=== PATIENT | female | born 1955 | race Caucasian/White ===

== ENCOUNTER → 2018-01-17 | Outpatient (CLI) | payer OTHER | END | disposition home or self-care (01) | LOC: CFH 14:49 | PROVIDERS: ATTEND Family Medicine | DX: Z12.31 Encounter for screening mammogram for malignant neoplasm of breast (principal) | CPT/HCPCS: 77067 ==

== ENCOUNTER 2019-12-22 15:21 | Outpatient (CLI) | payer BC, OTHER | END 2019-12-22 23:59 | disposition home or self-care (01) | LOC: CFH 15:21 | PROVIDERS: ATTEND Family Medicine | DX: Z12.31 Encounter for screening mammogram for malignant neoplasm of breast (principal) | CPT/HCPCS: 77063; 77067 ==